=== PATIENT | female | born 1955 | race Caucasian/White ===

== ENCOUNTER 2023-05-15 03:19 | Inpatient (IN) | payer BC, MEDICARE ==
[~2023-05-15] VITALS: Ht 162.6 cm; Wt 99.7 kg
[2023-05-15 03:55] VITALS: PULSE 19; RESP 19; O2SAT 95
[2023-05-15 04:39] LABS: Basophils # (auto) 0.1 10 ^3/uL (0-0.2); Basophils % (auto) 0.6 % (0.0-2.0); Eosinophils # (auto) 0 10 ^3/uL (0-0.8); Eosinophils % (auto) 0.5 % (0.0-7.0); Hematocrit 40.3 % (36.0-46.0); Hemoglobin 13.3 g/dL (12.2-16.2); Lymphocytes # (auto) 0.8 10 ^3/uL (0.4-5.4); Lymphocytes % (auto) 7.7 % (10.0-50.0); Mean Corpuscular Hemoglobin 29.5 pg (28.0-32.0); Mean Corpuscular Volume 89.2 fL (80.0-100.0); Monocytes # (auto) 0.9 10 ^3/uL (0-1.3); Monocytes % (auto) 8.9 % (0.0-12.0); Neutrophils # (auto) 8.2 10 ^3/uL (1.6-8.6); Neutrophils % (auto) 82.3 % (37.0-80.0); Red Blood Cells 4.52 10^6/uL (4.0-5.20)
[2023-05-15 04:48] LABS: Alanine Aminotransferase 98 U/L (7-40); Albumin 4.4 g/dL (3.2-4.8); Alkaline Phosphatase 432 U/L (46-116); Anion Gap 9 (5-15); Aspartate Aminotransferase 92 U/L (13-40); Blood Urea Nitrogen 20 mg/dL (9-23); Calcium 9.3 mg/dL (8.7-10.4); Carbon Dioxide 22 mmol/L (20-30); Chloride 106 mmol/L (98-107); Glucose 148 mg/dL (74-106); Lipase 163 U/L (12-53); Potassium 3.6 mmol/L (3.5-5.1); Sodium 137 mmol/L (136-145)
[2023-05-15 04:49] LABS: Bilirubin, Total 3.9 mg/dL (0.2-1.0)
[2023-05-15] MEDS ORDERED: ONDANSETRON HCL 4 MG/2 ML VIAL IV ONE (06:45)
[2023-05-15] MEDS ORDERED: KETOROLAC TROMETH 30 MG/ML 1ML VIAL IV ONE (06:45)
[2023-05-15] MEDS ORDERED: LIDOCAINE VISCOUS 2% 15ML UD PO ONE (06:45)
[2023-05-15] MEDS ORDERED: MAALOX PLUS or MAALOX 30 ML PO ONE (06:45)
[2023-05-15] MEDS ORDERED: HYDROmorphone HCL 2 MG/ML VL/or syr IV ONE (06:45)
[2023-05-15] MEDS ORDERED: SODIUM CHLORIDE 0.9% 1,000 ML IVB ONE (06:45)
[2023-05-15] MEDS ORDERED: IOHEXOL 300 MG/ML 100ML BOTTLE IJ ONE (07:46)
[2023-05-15] MEDS ORDERED: PIPERACILLIN-TAZOB 3.375GM 100 ML IV ONE (08:00)
[2023-05-15] MEDS ORDERED: SODIUM CHLORIDE 0.9% 1,000 ML IV ONE (08:00)
[2023-05-15] MEDS ORDERED: METOCLOPRAMIDE HCL 5MG/ml INJ 2ml VIAL IV ONE ×2 (08:45)
[2023-05-15] MEDS ORDERED: LORazepam 2MG/ML-1ML VIAL IV ONE ×2 (08:45)
[2023-05-15 11:05] VITALS: PULSE 80; RESP 20; O2SAT 96
[2023-05-15 12:40] LABS: Urine Bacteria NONE SEEN /hpf (None Seen); Urine Blood Negative /uL (Negative); Urine Clarity Clear (Clear); Urine Color Yellow (Yellow); Urine Protein, UAD 1+ (Negative); Urine Urobilinogen Normal (Negative); Urine WBC 1 /hpf (0 - 5); Urine pH 5.5 (5.0-8.0)
[2023-05-15 12:55] LABS: Urine Specific Gravity > 1.050 (1.001-1.035)
[2023-05-15] MEDS ORDERED: HYDROcodone-ACET 5/325MG TAB PO PRN (13:45)
[2023-05-15] MEDS ORDERED: DOCUSATE SOD 100 MG CAP PO PRN (13:45)
[2023-05-15] MEDS ORDERED: ONDANSETRON HCL 4 MG/2 ML VIAL IV PRN (13:45)
[2023-05-15] MEDS ORDERED: MORPHINE SULFATE INJ 2 MG/ml SYRG IV PRN (13:45)
[2023-05-15] MEDS ORDERED: ACETAMINOPHEN 325 MG TAB PO PRN (13:45)
[2023-05-15] MEDS: SODIUM CHLORIDE 0.9% 1,000 ML IV SCH ×2 (13:45→20:25)
[2023-05-15] MEDS ORDERED: AMLO1TAB23 PO (13:48)
[2023-05-15] MEDS ORDERED: ATOR20TA50 PO (13:48)
[2023-05-15] MEDS ORDERED: LISI40TA16 PO (13:48)
[2023-05-15 14:37] LABS: INR 1.02 (0.9-1.15); Partial Thromboplastin Time 25.6 SEC (24.5-34.5); Prothrombin Time 10.7 sec (9.3-11.8)
[2023-05-15] MEDS: AMPICILLIN & SULBACTAM SODIUM 3 GM in SODIUM CHL 0.9% 100 ML IV SCH ×2 (16:01→21:33)
[2023-05-15 18:58] VITALS: PULSE 89; RESP 18; O2SAT 94
[2023-05-15 20:00] VITALS: BP 106/55; PULSE 69; RESP 20; TEMP 98.4; O2SAT 93
[2023-05-15 22:00] VITALS: BP 106/55; PULSE 69; RESP 20; TEMP 98; O2SAT 93
[2023-05-16] VITALS (7 sets, daily range): BP systolic 111–136; BP diastolic 53–65; PULSE 69–76; RESP 12–18; TEMP 97.4–99.3; O2SAT 9–99
[2023-05-16] MEDS: AMPICILLIN & SULBACTAM SODIUM 3 GM in SODIUM CHL 0.9% 100 ML IV SCH ×4 (02:39→20:20)
[2023-05-16] MEDS: SODIUM CHLORIDE 0.9% 1,000 ML IV SCH ×2 (03:05→09:40)
[2023-05-16 05:21] LABS: Basophils # (auto) 0.1 10 ^3/uL (0-0.2); Basophils % (auto) 0.9 % (0.0-2.0); Eosinophils # (auto) 0.1 10 ^3/uL (0-0.8); Eosinophils % (auto) 2.6 % (0.0-7.0); Hematocrit 36.6 % (36.0-46.0); Lymphocytes # (auto) 0.9 10 ^3/uL (0.4-5.4); Lymphocytes % (auto) 15.6 % (10.0-50.0); Mean Corpuscular Hemoglobin 29.5 pg (28.0-32.0); Mean Corpuscular Hgb Conc. 32.7 g/dL (32.0-36.0); Mean Corpuscular Volume 90.1 fL (80.0-100.0); Monocytes # (auto) 0.7 10 ^3/uL (0-1.3); Monocytes % (auto) 11.9 % (0.0-12.0); Neutrophils # (auto) 3.8 10 ^3/uL (1.6-8.6); Nucleated Red Blood Cells % 0.1 %; Red Blood Cells 4.06 10^6/uL (4.0-5.20); Red Cell Distribution Width 15.3 % (11.8-14.3); White Blood Cell 5.5 10^3/uL (4.4-10.8)
[2023-05-16 05:37] LABS: Alanine Aminotransferase 339 U/L (7-40); Albumin 3.6 g/dL (3.2-4.8); Alkaline Phosphatase 486 U/L (46-116); Anion Gap 7 (5-15); Aspartate Aminotransferase 495 U/L (13-40); BUN/Creatinine Ratio 19.7 (10.0-20.0); Blood Urea Nitrogen 14 mg/dL (9-23); Calcium 8.4 mg/dL (8.7-10.4); Carbon Dioxide 25 mmol/L (20-30); Chloride 110 mmol/L (98-107); Glucose 82 mg/dL (74-106); Potassium 3.6 mmol/L (3.5-5.1); Sodium 142 mmol/L (136-145)
[2023-05-16 05:38] LABS: Bilirubin, Total 3.8 mg/dL (0.2-1.0); Total Protein 5.8 g/dL (5.7-8.2)
[2023-05-16] MEDS: PANTOPRAZOLE 40 MG/10 ML VIAL INJ IV SCH (09:43)
[2023-05-16 13:05] LABS: COVID19 ANTIGEN SOFIA FIA NEGATIVE (NEGATIVE)
[2023-05-16] MEDS: LACTATED RINGER'S 1,000 ML IV SCH ×2 (13:26→21:32)
[2023-05-16] MEDS ORDERED: DEXTROSE (50%) 50ML SYRG IV ONE (16:30)
[2023-05-17] MEDS: AMPICILLIN & SULBACTAM SODIUM 3 GM in SODIUM CHL 0.9% 100 ML IV SCH ×4 (02:18→20:13)
[2023-05-17 05:00] VITALS: BP 119/64; PULSE 84; RESP 17; TEMP 99.5; O2SAT 90
[2023-05-17] MEDS: LACTATED RINGER'S 1,000 ML IV SCH (05:40)
[2023-05-17 08:00] VITALS: BP 111/65; PULSE 76; PULSE 84; RESP 18; TEMP 97.7; O2SAT 96
[2023-05-17 08:59] VITALS: BP 114/52; PULSE 75; RESP 20; TEMP 98.1; O2SAT 90
[2023-05-17] MEDS: PANTOPRAZOLE 40 MG/10 ML VIAL INJ IV SCH (09:40)
[2023-05-17] MEDS: D5W/SOD CHL 0.45% 1,000 ML IV SCH ×2 (11:30→21:43)
[2023-05-17 11:56] LABS: Basophils # (auto) 0.1 10 ^3/uL (0-0.2); Eosinophils # (auto) 0.1 10 ^3/uL (0-0.8); Eosinophils % (auto) 1.3 % (0.0-7.0); Hematocrit 36.3 % (36.0-46.0); Hemoglobin 11.9 g/dL (12.2-16.2); Lymphocytes # (auto) 1.2 10 ^3/uL (0.4-5.4); Lymphocytes % (auto) 19.3 % (10.0-50.0); Mean Corpuscular Hemoglobin 28.9 pg (28.0-32.0); Mean Corpuscular Hgb Conc. 32.7 g/dL (32.0-36.0); Mean Corpuscular Volume 88.4 fL (80.0-100.0); Monocytes # (auto) 0.6 10 ^3/uL (0-1.3); Monocytes % (auto) 9.7 % (0.0-12.0); Neutrophils # (auto) 4.2 10 ^3/uL (1.6-8.6); Neutrophils % (auto) 68.7 % (37.0-80.0); Nucleated Red Blood Cells % 0.1 %; Red Cell Distribution Width 14.9 % (11.8-14.3)
[2023-05-17 12:18] LABS: Alanine Aminotransferase 211 U/L (7-40); Albumin 3.5 g/dL (3.2-4.8); Alkaline Phosphatase 382 U/L (46-116); Anion Gap 7 (5-15); Aspartate Aminotransferase 199 U/L (13-40); Blood Urea Nitrogen 11 mg/dL (9-23); Calcium 8.2 mg/dL (8.5-10.1); Carbon Dioxide 25 mmol/L (20-30); Chloride 110 mmol/L (98-107); Glucose 72 mg/dL (74-106); Potassium 3.6 mmol/L (3.5-5.1); Sodium 142 mmol/L (136-145)
[2023-05-17 12:19] LABS: Bilirubin, Total 1.5 mg/dL (0.2-1.0); Total Protein 5.6 g/dL (5.7-8.2)
[2023-05-17 13:00] VITALS: BP 135/72; PULSE 73; RESP 20; TEMP 98.5; O2SAT 94
[2023-05-17 20:00] VITALS: BP 102/62; PULSE 68; RESP 19; TEMP 100.1; O2SAT 93
[2023-05-17 22:00] VITALS: BP 102/62; PULSE 68; RESP 19; TEMP 100.1; O2SAT 93
[2023-05-18] VITALS (7 sets, daily range): BP systolic 139–152; BP diastolic 51–72; PULSE 66–78; RESP 17–19; TEMP 97.9–98.9; O2SAT 93–97
[2023-05-18] MEDS: AMPICILLIN & SULBACTAM SODIUM 3 GM in SODIUM CHL 0.9% 100 ML IV SCH ×4 (01:32→20:06)
[2023-05-18] MEDS: D5W/SOD CHL 0.45% 1,000 ML IV SCH ×3 (06:49→19:30)
[2023-05-18] MEDS: PANTOPRAZOLE 40 MG/10 ML VIAL INJ IV SCH (09:30)
== END 2023-05-18 22:50 | disposition short-term general hospital (02) | DRG 444 ==
LOC: EDBD 03:19 → ER 03:19 → OVERFLOW 13:45 → WEST WING 18:40
PROVIDERS: ADMIT Nurse Practitioner Family; ATTEND Family Medicine
DX: K80.62 Calculus of gallbladder and bile duct with acute cholecystitis without obstruction (principal); K85.10 Biliary acute pancreatitis without necrosis or infection; E66.9 Obesity, unspecified; E78.00 Pure hypercholesterolemia, unspecified; E86.0 Dehydration; E11.9 Type 2 diabetes mellitus without complications; R74.01 Elevation of levels of liver transaminase levels; R79.89 Other specified abnormal findings of blood chemistry; Z20.822 Contact with and (suspected) exposure to COVID-19; Z68.37 Body mass index [BMI] 37.0-37.9, adult; Z83.3 Family history of diabetes mellitus
CPT/HCPCS: 36415; 71045; 74177; 74181; 76705; 78226; 80053; 81001; 82962; 83690; 84484; 85025; 85610; 85730; 86850; 86900; 86901; 87426; 93005; 96375; C9113; G0378; J2405; J2543